=== PATIENT | male | born 1980 | race Caucasian/White ===

== ENCOUNTER 2024-07-26 09:36 | Outpatient (AMB) | payer OTHER, SELFPAY ==
--- NOTE | 2024-07-26 09:50 | AM.OFFWIN_ITS ---
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 Patient Tobacco Use Status: Former Tobacco user Allergies No Known Allergies Allergy (Verified 07/26/24 09:54) Do you need a note to return to daycare/school/sports/work: Yes HPI HPI Comments History of Present Illness Details Patient is a 43-year-old male complaining of right shoulder pain. He tells me he uses a jackhammer pretty consistently for his work so he has always had some shoulder pain existing on the right side. He tells me that 3 days ago, he was carrying a large pizza box and he tripped and fell. Rather than dropping the pizza, he fell forward onto his bilateral elbows. His left shoulder seems fine in his left elbow seems to be healing well but the right shoulder took the brunt of the impact and it has been hurting ever since. He is having difficulty raising it above his head out to the side or in front of him, he tells me doing those motions as very painful. He tells me he is from [place] and has been [place] and right now he staying in [facility] so all of his physicians are in [place]. PFS Social History Patient Tobacco Use Status: Former Tobacco user Review of Systems Const All systems reviewed & are unremarkable except as noted in HPI and below Physical Exam Vital Signs: Last Vital Signs Pulse 80 07/26/24 09:51 BP 150/100 H 07/26/24 09:51 Pulse Ox 96 07/26/24 09:51 Oxygen Delivery Method Room Air 07/26/24 09:51 BMI result Body Mass Index 24.8 Const General: cooperative, healthy appearing, comfortable and no acute distress Orientation/consciousness: patient oriented x3 Limitations: no limitations HEENT Head: Yes normal to inspection Resp Effort & Inspection: normal respiratory effort and able to speak in complete sentences Neuro General: patient oriented x3 Extrem Right upper extremity: shoulder/upper arm Details: abnormal ROM Details: pain with active ROM Details: in ABduction and in extension; but not in ADduction, but not in internal rotation and external rotation- and pain with passive ROM Details: with ABduction and with extension; but not with ADduction, but not with internal rotation and external rotation-; no tenderness, no swelling, no abrasions, no lacerations, no ecchymosis, no deformity and no unusual warmth, elbow/forearm Details: normal to inspection and normal ROM; no tenderness, no unusual warmth, no abrasions, no lacerations, no ecchymosis and no deformity, wrist Details: normal to inspection and normal ROM; no tenderness, no swelling, no unusual warmth, no abrasions, no lacerations and no ecchymosis and Extremity exam: right hand Details: normal to inspection, normal capillary refill, normal ROM of fingers and no swelling; no tenderness, no abrasions and no lacerations Left upper extremity: normal to inspection, elbow/forearm Details: normal ROM and abrasion (lateral elbow); no tenderness, no swelling, no unusual warmth, no lacerations, no ecchymosis and no deformity, wrist (Full ROM, no abrasions or ecchymosis noted) and hand Details: normal to inspection, normal capillary refill, normal ROM of fingers and no swelling; no abrasions, no lacerations and no ecchymosis Assessment & Plan Assessment & Plan (1) Right shoulder pain: Code(s): M25.511 - Pain in right shoulder Qualifiers: Chronicity: acute Qualified Code(s): M25.511 - Pain in right shoulder Plan: We will get a x-ray of the right shoulder and placed patient in a sling, gave him contact information for [facility] if his pain continues as he does not have a PCP. Recommended rest, ice and Aleve. (2) Strain of shoulder, right: Code(s): S46.911A - Strain of unspecified muscle, fascia and tendon at shoulder and upper arm level, right arm, initial encounter Qualifiers: Encounter type: initial encounter Qualified Code(s): S46.911A - Strain of unspecified muscle, fascia and tendon at shoulder and upper arm level, right arm, initial encounter Plan: See above Plan See above Orders: Orders XR shoulder RT min 2V Today M25.511 - Pain in right shoulder, S46.911A - Strain of unspecified muscle, fascia and tendon at shoulder and upper arm level, right arm, initial encounter Coding Level of Care Code New Pt Level 4 (26109) Diagnoses Acute pain of right shoulder M25.511 Chronicity: acute Strain of right shoulder, initial encounter S46.911A Encounter type: initial encounter
[2024-07-26 09:51] VITALS: BP 150/100; PULSE 80; O2SAT 96; BMI 24.8
== END 2024-07-26 11:11 | disposition home or self-care (01) ==
PROVIDERS: Visit Provider Physician Assistant
DX: M25.511 Pain in right shoulder (principal); S46.911A Strain of unspecified muscle, fascia and tendon at shoulder and upper arm level, right arm, initial encounter

== ENCOUNTER 2024-07-26 10:56 | Outpatient (REF) | payer OTHER, SELFPAY ==
--- NOTE | ~2024-07-26 | XR_ITS ---
EXAMINATION: XR SHOULDER, RIGHT CLINICAL INFORMATION: Right shoulder pain COMPARISON: None available. TECHNIQUE: Three views of the right shoulder. 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 The glenohumeral joint appears normal. 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 Otherwise unremarkable. Electronically signed by: Benito Watkins MD 07/26/2024 01:51 PM EDT
== END 2024-07-26 10:57 | disposition home or self-care (01) ==
LOC: HO.HMGCX 10:56
PROVIDERS: Visit Provider Physician Assistant
DX: S46.911A Strain of unspecified muscle, fascia and tendon at shoulder and upper arm level, right arm, initial encounter (principal)
CPT/HCPCS: 73030